=== PATIENT | female | born 1990 | race Two or more races ===

== ENCOUNTER 2018-08-05 09:26 | Emergency (ER) | payer SELFPAY ==
[~2018-08-05] VITALS: Ht 165.1 cm; Wt 54.0 kg
[2018-08-05 09:43] VITALS: BP 134/76
[2018-08-05] MEDS ORDERED: Morphine Sulfate 2mg/ml Inj IVP ONE (09:45)
[2018-08-05] MEDS ORDERED: LORazepam Inj 2mg/ml 1ml IV ONE (10:00)
--- NOTE | 2018-08-05 10:02 | Emergency Room Report ---
History of Present Illness General Chief Complaint: Vomiting Source: Patient Present Illness HPI 28-year-old female presents with severe nausea with some vomiting since this morning. She did not have preceding abdominal pain but states that she has abdominal pain only comes of multiple episodes of retching. She states that her anxiety usually drives her nausea and vomiting and she is very nervous about being in the hospital. She denies sick contacts, foreign travel, previous abdominal pelvic surgery. Denies history of ovarian cyst, urinary complaints. Patient's friend bedside state that she's been with her for a couple years and she repeatedly has a cycles of hyperemesis. She's had multiple CAT scans, which all show "nothing". She states that the last time they were in hospital she got Haldol and that really helped. Allergies: Coded Allergies: No Known Allergies (Unverified , 08/05/18) Patient History Past Medical History: none, psych hx Past Surgical History: none Pertinent Family History: none Social History: Denies: smoking, alcohol use, drug use Now: No Immunizations: UTD Reviewed Nursing Documentation: PMH: Agreed; PSxH: Agreed Nursing Documentation-PMH Past Medical History: No Stated History Review of Systems All Other Systems: negative except mentioned in HPI Physical Exam Vital Signs Date Time Temp Pulse Resp B/P (MAP) Pulse Ox O2 Delivery O2 Flow Rate FiO2 08/05/18 09:39 97.5 84 18 134/76 100 Room Air Sp02 EP Interpretation: reviewed, normal General Appearance: normal inspection, no apparent distress, alert, GCS 15, non -toxic, mild distress Head: normocephalic, atraumatic Eyes: bilateral eye PERRL, bilateral eye EOMI ENT: normal ENT inspection, hearing grossly normal, normal pharynx, no angioedema, normal voice, TMs + canals normal, uvula midline, moist mucus membranes Neck: normal inspection, full range of motion, supple, thyroid normal, no meningismus, no bony tend Respiratory: normal inspection, lungs clear, normal breath sounds, no rhonchi, no respiratory distress, no retraction, no accessory muscle use, no wheezing, speaking full sentences Cardiovascular #1: regular rate, rhythm, no edema, no JVD, normal capillary refill Gastrointestinal: normal inspection, normal bowel sounds, non tender, soft, no mass, no peritonitis, non-distended, no guarding, no hernia, no pulsatile mass Genitourinary: no CVA tenderness Musculoskeletal: normal inspection, back normal, normal range of motion, no calf tenderness, pelvis stable, Kavon's Sign negative Neurologic: normal inspection, alert, oriented x3, responsive, service aide III-XII nml as tested, motor strength/tone normal, cerebellar normal, normal gait, speech normal Psychiatric: normal inspection, judgement/insight normal, mood/affect normal, no suicidal/homicidal ideation, no delusions Skin: normal inspection, normal color, no rash Lymphatic: normal inspection, no adenopathy Medical Decision Making Diagnostic Impression: Primary Impression: Nausea and vomiting Qualified Codes: R11.2 - Nausea with vomiting, unspecified Additional Impression: Anxiety ER Course VSS, afebrile Non-focal abdomen Will treat nausea Will treat anxiety Will check for etiology of abd pain 1110am - Patient's abdomen remains non-focal - Will try additional zofran and haldol - Rest of labs are normal, including LFTs - Minor hypoK - was replated orally in ED - Elevated leuks however likely reactionary - stress related - she does NOT have a UTI. Her abdomen is soft on serial exams. Plus, she is refusing CT at this time despite my urging that we do it to r/o appy - She understands to return to ER for worsening symptoms including severe abdominal pain Rhythm Strip Diag. Results EP Interpretation: yes Rate: 80 Rhythm: NSR, no PVC's, no ectopy Last Vital Signs Date Time Temp Pulse Resp B/P (MAP) Pulse Ox O2 Delivery O2 Flow Rate FiO2 08/05/18 09:48 84 20 Room Air 08/05/18 09:43 97.5 134/76 100 Status: improved Disposition: HOME, SELF-CARE AHMET LIM M.D. Aug 05, 2018 10:02
[2018-08-05 10:03] LABS: APPEARANCE,URINE CLOUDY; BILIRUBIN, URINE NEGATIVE (NEGATIVE); COLOR,URINE PALE YELLOW; GLUCOSE, URINE (UA) 1+ (NEGATIVE); HEMATOCRIT 41.2 % (37.0-47.0); HEMOGLOBIN 14.1 G/DL (12.0-16.0); KETONES,URINE 1+ (NEGATIVE); LEUKOCYTE ESTERASE ,URINE NEGATIVE (NEGATIVE); MEAN CORPUSCULAR VOLUME 88 FL (80-99); NITRITE,URINE NEGATIVE (NEGATIVE); PH,URINE 7 (4.5-8.0); PLATELET COUNT 274 K/UL (150-450); PROTEIN,URINE NEGATIVE (NEGATIVE); RED BLOOD COUNT 4.67 M/UL (4.20-5.40); RED CELL DISTRIBUTION WIDTH 11.5 % (11.6-14.8); UROBILINOGEN,URINE NORMAL MG/DL (0.0-1.0); WHITE BLOOD COUNT 19.2 K/UL (4.8-10.8)
[2018-08-05 10:17] LABS: ANION GAP 14 mmol/L (5-15); BLOOD UREA NITROGEN 10 mg/dL (7-18); CALCIUM 8.9 MG/DL (8.5-10.1); CARBON DIOXIDE 20 MMOL/L (21-32); CHLORIDE 103 MMOL/L (98-107); CREATININE 0.7 MG/DL (0.55-1.30); POTASSIUM 3.1 MMOL/L (3.5-5.1); SODIUM 137 MMOL/L (136-145)
[2018-08-05 10:22] LABS: ALANINE AMINOTRANSFERASE 19 U/L (12-78); ALBUMIN 4.2 G/DL (3.4-5.0); ALBUMIN/GLOBULIN RATIO 1.3 (1.0-2.7); ALKALINE PHOSPHATASE 97 U/L (46-116); ASPARTATE AMINO TRANSFERASE 17 U/L (15-37); BILIRUBIN,TOTAL 0.4 MG/DL (0.2-1.0)
[2018-08-05] MEDS ORDERED: Haloperidol 5mg/ml Inj IVPB ONE (11:15)
[2018-08-05 12:00] VITALS: BP 128/75
== END 2018-08-05 12:00 | disposition home or self-care (01) ==
LOC: EMR 10:10
DX: R11.2 Nausea with vomiting, unspecified (principal); F41.9 Anxiety disorder, unspecified
CPT/HCPCS: 36415; 80053; 81003; 81025; 83690; 85007; 85025; 96361; 96374; 96375; 99284; J1630; J2270; J2405; J8499